=== PATIENT | female | born 1980 | race Caucasian/White ===

== ENCOUNTER → 2016-04-24 | Outpatient (CLI) | payer OTHER ==
[~2016-04-24] MED LIST: DESYREL 50MG50 MG PO; FLAGYL500 MG PO; LAMICTAL200 MG PO; LEVAQUIN 5500 MG/TA1 PO; LEXAPRO 5MG5 MG PO; LEXAPRO10 MG PO; NORCO 325 MG-51 TAB PO; NORCO 325 MG-7.1 TAB PO; PAXIL10 MG PO; PRENATAL1 TA1 PO; VIIBRYD40 MG PO; ZOFRAN 4MG T4 MG/TAB PO; ZOFRAN ODT4 MG PO; ZOFRAN4 M1 PO
== END ==
LOC: BHSO 09:48
DX: F41.1 Generalized anxiety disorder (principal)

== ENCOUNTER → 2016-06-02 | Outpatient (CLI) | payer OTHER | LOC: BHSO 11:26 | DX: F41.1 Generalized anxiety disorder (principal) ==

== ENCOUNTER → 2016-07-28 | Outpatient (CLI) | payer OTHER | LOC: BHSO 13:44 | DX: F41.1 Generalized anxiety disorder (principal) ==

== ENCOUNTER → 2016-09-11 | Outpatient (CLI) | payer OTHER | LOC: BHSO 10:21 | DX: F33.1 Major depressive disorder, recurrent, moderate (principal) ==

== ENCOUNTER → 2016-10-23 | Outpatient (CLI) | payer OTHER | LOC: BHSO 15:16 | DX: F33.2 Major depressive disorder, recurrent severe without psychotic features (principal) ==

== ENCOUNTER → 2016-11-06 | Outpatient (CLI) | payer OTHER | LOC: BHSO 14:37 | DX: F33.1 Major depressive disorder, recurrent, moderate (principal) ==

== ENCOUNTER → 2016-12-17 | Outpatient (CLI) | payer OTHER | LOC: BHSO 13:45 | DX: F41.1 Generalized anxiety disorder (principal) ==

== ENCOUNTER → 2017-01-19 | Outpatient (CLI) | payer OTHER | LOC: BHSO 10:12 | DX: F41.1 Generalized anxiety disorder (principal) ==